=== PATIENT | female | born 1955 | race Caucasian/White ===

== ENCOUNTER 2020-11-22 08:00 | Inpatient (IN) | payer OTHER ==
[~2020-11-22] VITALS: Ht 172.7 cm; Wt 98.6 kg
[2020-11-22 08:00] VITALS: BP 192/88
[2020-11-22] MEDS ORDERED: LEVOTHYROXINE150 MCG PO (08:09)
[2020-11-22] MEDS ORDERED: SERTRALINE HCL100 MG PO (08:10)
[2020-11-22] MEDS ORDERED: ATORVASTATIN CA20 MG PO (08:10)
[2020-11-22] MEDS ORDERED: METFORMIN HCL1000 MG PO (08:11)
[2020-11-22] MEDS ORDERED: PRINIVIL40 MG PO (08:11)
[2020-11-22] MEDS ORDERED: ASA81BEC PO (08:11)
[2020-11-22] MEDS ORDERED: NORVASC5 MG PO (08:11)
[2020-11-22] MEDS ORDERED: FISH OIL 1,0001 EAC9 PO (08:12)
[2020-11-22 08:36] LABS: ABSOLUTE NEUTROPHILS 6.9 thou/uL (1.4-8.2); BASOPHILS 0.2 % (0.0-2.0); HEMOGLOBIN 12.6 gm/dL (12.0-15.0); LYMPHOCYTES 16.1 % (24.0-44.0); MCH 26.2 pg (26.0-34.0); MCHC 33.1 g/dL (28.0-37.0); MCV 79.2 fL (80.0-100.0); MONOCYTES 6.5 % (1.0-8.0); PLATELET COUNT 368 thou/uL (150-400); POLYS 75.2 % (36.0-66.0); RDW 15.2 % (10.5-14.5); WBC 9.1 thou/uL (4.0-11.0)
[2020-11-22 08:57] LABS: ANION GAP 8 mmol/L (7-16); BUN 14 mg/dL (7-18); CALCIUM 9.3 mg/dL (8.5-10.1); CHLORIDE 102 mmol/L (98-107); CO2 26 mmol/L (21-32); CREATININE 0.8 mg/dL (0.6-1.0); GLUCOSE 243 mg/dL (74-106); SODIUM 136 mmol/L (136-145)
[2020-11-22 08:58] LABS: POTASSIUM 4.7 mmol/L (3.5-5.1)
[2020-11-22 09:04] LABS: ALBUMIN 3.6 g/dL (3.4-5.0); SGOT 32 U/L (15-37); SGPT 37 U/L (14-59); TOTAL BILIRUBIN 0.4 mg/dL (0.2-1.0); TROPONIN-I <0.06 ng/mL (<0.06)
--- NOTE | 2020-11-22 09:23 | EKG ---
[place] [address] [facility] [place] [address] ELECTROCARDIOGRAM REPORT Name: PERLA COLLINS [id number] Admission: 11/22/20 Attend Phys: Discharge: Date of : 53 Report #: [id number] [facility] ED Test Date: 2020-11-22 Test Time: 08:03:36 Pat Name: PERLA COLLINS Department: Room: Gender: F Face Burler: : 1955 Requested By: Grayson Roman Order Number: [id number] MD: Yonis Garcia Measurements Intervals [place] Rate: 75 P: 49 IL: 144 QRS: 39 QRSD: 151 T: -3 QT: 423 QTc: 473 Interpretive Statements Sinus rhythm Right bundle branch block No previous ECG available for comparison Electronically Signed On 11-22-2020 9:23:20 CDT by Yonis Garcia [email or web address] <ELECTRONICALLY SIGNED> By: Yonis Garcia MD, [facility] 11/22/20922 2 08 Yonis Garcia MD, FACC /EPI
[2020-11-22 12:09] VITALS: BP 187/82
[2020-11-22 14:57] VITALS: BP 171/65
[2020-11-22 16:00] VITALS: BP 158/89
--- NOTE | 2020-11-22 18:00 | NUR ---
PT TO THE UNIT FROM THE ER. ORIENTED TO ROOM AND BEDSPACE. MEDS PER SHASHI - CRISTINA DIET AND FLUIDS. NO CO'S OF NAUSEA GIVEN MS X 1 MG FOR CO'S OF PAIN WITH RELIEF. UP AD SUMANTH IN ROOM. ASSESSMENT CHARTED - NO CO'S AT THE PRESENT TIME.
[2020-11-22 19:55] VITALS: BP 140/66
[2020-11-23 05:00] VITALS: BP 140/62
[2020-11-23 06:08] LABS: ALBUMIN 3.1 g/dL (3.4-5.0); ANION GAP 5 mmol/L (7-16); BUN 17 mg/dL (7-18); CALCIUM 8.7 mg/dL (8.5-10.1); CHLORIDE 103 mmol/L (98-107); CO2 28 mmol/L (21-32); CREATININE 0.8 mg/dL (0.6-1.0); GLUCOSE 216 mg/dL (74-106); MAGNESIUM 1.7 mg/dL (1.8-2.4); PHOSPHORUS 4.1 mg/dL (2.6-4.7); POTASSIUM 3.9 mmol/L (3.5-5.1); SGOT 18 U/L (15-37); SGPT 33 U/L (14-59); SODIUM 136 mmol/L (136-145); TOTAL BILIRUBIN 0.3 mg/dL (0.2-1.0); TOTAL PROTEIN 6.9 g/dL (6.4-8.2); TROPONIN-I <0.06 ng/mL (<0.06)
[2020-11-23 06:15] LABS: BASOPHILS 0.6 % (0.0-2.0); EOSINOPHILS 2.3 % (0.0-3.0); HEMATOCRIT 33.6 % (37.0-47.0); HEMOGLOBIN 10.9 gm/dL (12.0-15.0); LYMPHOCYTES 12.1 % (24.0-44.0); MCH 25.7 pg (26.0-34.0); MCHC 32.5 g/dL (28.0-37.0); MCV 79.2 fL (80.0-100.0); MONOCYTES 8.6 % (1.0-8.0); PLATELET COUNT 310 thou/uL (150-400); POLYS 76.4 % (36.0-66.0); RBC 4.25 mil/uL (4.20-5.00); RDW 14.7 % (10.5-14.5); WBC 7.8 thou/uL (4.0-11.0)
--- NOTE | 2020-11-23 07:26 | NUR ---
PAIN POORLY CONTROLLED.SHE'S BEEN NPO SINCE MIDNIGHT UNTIL THIS MORNING WHEN SHE'S IN SO MUCH PAIN.PT VERBALIZED SHE DOESN'T CARE,SHE JUST WANT TO EAT OR ELSE SHE WILL JUST GO HOME.EXPLAINED TO HER ABOUT HER POSSIBLE PROCEDURE TODAY AND SHE'S AWARE AND STILL INSIST TO EAT.MONITOR SHOWS SB,SR.POC CONTINUED.
[2020-11-23 08:00] VITALS: BP 154/57
[2020-11-23 10:42] LABS: ABSOLUTE RETIC COUNT 0.0641 10^6/uL; OBSERVED RETIC COUNT 1.53 % (0.6-2.6)
[2020-11-23 10:53] LABS: % SATURATION 16 % (20-39); IRON 46 ug/dL (50-170); TIBC 285 ug/dL (250-450)
[2020-11-23 12:04] LABS: FOLIC ACID 61.7 ng/mL (8.6-58.9)
--- NOTE | 2020-11-23 12:51 | 2DMMODE ---
[facility] [place] [address] 2 D/M-MODE ECHOCARDIOGRAM Name: PERLA COLLINS Room #: 202-P ADM IN M.R.#: [id number] Admission: 11/22/20 Attend Phys: Anny Miranda MD Discharge: Date of : 53 Report #: [id number] THIS REPORT FOR: cc: [facility] - Clinic physician unknown [facility] - Clinic physician unknown Yonis Garcia MD [facility] ~ APPROVED REPORT Study performed: 11/23/2020 12:10:40 EXAM: Comprehensive 2D, Doppler, and color-flow Echocardiogram Patient Location: Bedside Room #: 202 Status: routine BSA: 2.12 HR: 60 bpm BP: 140/62 mmHg Rhythm: NSR Other Information Study Quality: Adequate/foreshortened apicals. Indications Chest Pain HTN, HLP, DM. 2D Dimensions IVSd: 12.06 (7-11mm) LVOT Diam: 20.74 (18-24mm) LVDd: 44.87 mm PWd: 12.18 (7-11mm) Ascending Ao: 30.10 (22-36mm) LVDs: 25.72 (25-40mm) Left Atrium: 36.21 (27-40mm) Aortic Root: 36.31 mm Aortic Valve AoV Peak Khoi.: 1.07 m/s AO Peak Gr.: 4.56 mmHg LVOT Max P.52 mmHg LVOT Max V: 0.79 m/s [place] Vmax: 2.51 cm2 Mitral Valve E/A Ratio: 0.8 MV Decel. Time: 167.42 ms MV E Max Khoi.: 0.63 m/s [facility] [address] [place] [address] 2 D/M-MODE ECHOCARDIOGRAM Name: PERLA COLLINS Room #: 202-P [facility] IN .R.#: [id number] Admission: 11/22/20 Attend Phys: Anny Miranda, Discharge: Date of : 53 Report #: [id number] MV A Khoi.: 0.76 m/s MV PHT: 48.55 ms IVRT: 64.59 ms Pulmonary Valve PV Peak Khoi.: 1.10 m/s PV Peak Gr.: 4.86 mmHg Tricuspid Valve RAP Estimate: 5.00 mmHg Left Ventricle The left ventricle is normal size. There is normal LV segmental wall motion. Mild concentric left ventricular hypertrophy. Left ventricular systolic function is normal. LVEF is 60-65%. Mild diastolic dysfunction is present (impaired relaxation pattern). Right Ventricle The right ventricle is normal size. The right ventricular systolic function is normal. Atria The left atrium size is normal. The right atrium size is normal. Aortic Valve The aortic valve is normal in structure. No aortic regurgitation is present. There is no aortic valvular stenosis. Mitral Valve The mitral valve is normal in structure. There is no mitral valve regurgitation noted. No evidence of mitral valve stenosis. Tricuspid Valve The tricuspid valve is normal in structure. There is no tricuspid valve regurgitation noted. Unable to assess PA pressure. Pulmonic Valve The pulmonary valve is normal in structure. Trace pulmonic regurgitation. Great Vessels The aortic root is normal in size. The ascending aorta is normal in size. IVC is normal in size and collapses >50% with inspiration. [facility] [address] [place] [address] 2 D/M-MODE ECHOCARDIOGRAM Name: PERLA COLLINS Room #: 202-P [facility] IN .R.#: [id number] Admission: 11/22/20 Attend Phys: Anny Miranda, Discharge: Date of : 53 Report #: [id number] Pericardium There is no pericardial effusion. <Conclusion> Normal left ventricle size/wall thickness Ejection fraction 65% Normal right ventricular size/function Normal atrial size Color-flow Doppler study was performed of the aortic/mitral/tricuspid/pulmonary valve Normal aortic/mitral valve structure and function No evidence of tricuspid valve insufficiency Normal aortic root size No pericardial effusion <ELECTRONICALLY SIGNED> By: Yonis Garcia MD, [facility] 11/23/20 1251 1251 1251 Yonis Garcia MD, FACC /INF
[2020-11-23 16:36] VITALS: BP 140/73
[2020-11-23] MEDS ORDERED: APAP650 PO (18:23)
[2020-11-23] MEDS ORDERED: TOPROL XL25 MG PO (18:23)
[2020-11-23] MEDS ORDERED: IRON325 M1 PO (18:26)
[2020-11-23 18:42] VITALS: BP 140/73
--- NOTE | 2020-11-23 19:32 | NUR ---
RECEIVED THE PATIENT CONSCIOUS AND ORIENTED.ON ROOM AIR BREATHING SPONTANEOUSLY.NOT IN DISTRESS./STRESS TEST DONE TODAY, REPORT SEEN BY DR. CALABRESE.LEFT SHOULDER X-RAY DONE AND SEEN BY DR. CALABRESE.DR. CALABRESE DECIDED TO DISCHARGE THE PATIENT.DISCHARGE PACKET GIVEN AND EVERYTHING EXPLAINED TO THE PATIENT.DISCHARGED PATIENT TO THE HOSPITAL ON STABLE CONDITION.
[2020-11-24 02:06] LABS: GLYCOHEMOGLOBIN (HGB A1C) 10.5 % (4.8-5.6)
[2020-11-25] MEDS ORDERED: ZYRTEC10 M4 PO (14:06)
[2020-11-25] MEDS ORDERED: PREDNISONE 10 M10 MG PO (14:06)
[2020-11-25] MEDS ORDERED: PROTONIX40 M2 PO (14:28)
== END 2020-11-23 19:00 | disposition home or self-care (01) | DRG 305 ==
LOC: ER 08:00 → EROBS 11:25 → 2N 11:25
PROVIDERS: Emergency Medicine; ADMIT Internal Medicine; ATTEND Internal Medicine
DX: I16.0 Hypertensive urgency (principal); I10 Essential (primary) hypertension; E78.5 Hyperlipidemia, unspecified; K59.00 Constipation, unspecified; E78.00 Pure hypercholesterolemia, unspecified; D64.9 Anemia, unspecified; E66.9 Obesity, unspecified; M19.012 Primary osteoarthritis, left shoulder; E11.9 Type 2 diabetes mellitus without complications; E03.9 Hypothyroidism, unspecified; Z20.822 Contact with and (suspected) exposure to COVID-19; Z68.33 Body mass index [BMI] 33.0-33.9, adult; Z79.84 Long term (current) use of oral hypoglycemic drugs; Z79.82 Long term (current) use of aspirin; Z79.899 Other long term (current) drug therapy; Z90.49 Acquired absence of other specified parts of digestive tract
CPT/HCPCS: 10081